=== PATIENT | male | born 1945 | race Two or more races ===

== ENCOUNTER 2021-07-09 07:14 | Outpatient (CLI) | payer OTHER | END 2021-07-09 07:19 | disposition home or self-care (01) | LOC: NUCLEAR 07:14 | PROVIDERS: ATTEND Internal Medicine | DX: R00.2 Palpitations (principal); I10 Essential (primary) hypertension | CPT/HCPCS: 78452; 93017; A9500; J0153 ==

== ENCOUNTER → 2022-08-02 07:53 | Outpatient (CLI) | payer OTHER | END | disposition home or self-care (01) | LOC: NUCLEAR 07:53 | PROVIDERS: ATTEND Psychiatry & Neurology Neurology | DX: G30.8 Other Alzheimer's disease (principal) | CPT/HCPCS: 78814; A9552 ==